=== PATIENT | male | born 1945 | race Caucasian/White ===

== ENCOUNTER 2021-07-25 17:14 | Outpatient (CLI) | payer BC, SELFPAY ==
[2021-07-25 18:50] VITALS: BP 147/87; PULSE 65; RESP 14; TEMP 36.5; O2SAT 95
[2021-07-25 20:00] VITALS: BP 131/75; PULSE 66; RESP 16; TEMP 36.4; O2SAT 95
== END 2021-07-25 17:15 | disposition home or self-care (01) ==
PROVIDERS: PCP Family Medicine; Visit Provider Family Medicine
DX: U07.1 COVID-19 (principal)
CPT/HCPCS: 96374; Q0222